=== PATIENT | female | born 1985 | race Caucasian/White ===

== ENCOUNTER 2016-11-01 11:08 | Emergency (ER) | payer BC ==
[2016-11-01 12:27] VITALS: BP 121/75
--- NOTE | 2016-11-01 13:00 | UC ---
Ear Complaint HPI - HPI Summary HPI Summary: has had cold symptoms for 2 weeks, now has left ear pain and swelling behind the ear. - History of Current Complaint Chief Complaint: UCRespiratory Stated Complaint: SORE THROAT,RIGHT EAR PAIN Time Seen by Provider: 11/01/16 12:47 Hx Obtained From: Patient Hx Last Menstrual Period: 10/28/15 ?: No Onset/Duration: Sudden Onset, Lasting Days Severity Initially: Moderate Severity Currently: Moderate Pain Intensity: 5 Pain Scale Used: 0-10 Numeric Associated Signs/Symptoms: Positive: Swelling @ - behing ear, URI Symptoms - Allergies/Home Medications Allergies/Adverse Reactions: Allergies Allergy/AdvReac Type Severity Reaction Status Date / Time Erythromycin Allergy Vomiting Verified 11/01/16 12:20 Home Medications: Home Medications Escitalopram (NF) [Lexapro (NF)] 5 mg PO DAILY 11/01/16 [History Confirmed 11/01] Levothyroxine TAB* [Synthroid TAB*] 50 mcg PO DAILY 11/01/16 [History Confirmed 11/01/16] Omeprazole CAP* [Prilosec CAP* 20 MG] 20 mg PO DAILY 11/01/16 [History Confirmed 11/01/16] PMH/Surg Hx/FS Hx/Imm Hx Previously Healthy: Yes Endocrine History Of: Reports: Thyroid Disease - Surgical History Surgical History: Yes Surgery Procedure, Year, and Place: Sinus surgery-2005 - Family History Known Family History: Positive: Cardiac Disease, Hypertension, Diabetes - Social History Alcohol Use: None Substance Use Type: None Smoking Status (MU): Never Smoked Tobacco - Immunization History Most Recent Influenza Vaccination: FALL 2015 Review of Systems Constitutional: Fatigue Skin: Negative Eyes: Negative ENT: Sore Throat, Ear Ache Respiratory: Negative Cardiovascular: Negative Gastrointestinal: Negative Genitourinary: Negative Motor: Negative Neurovascular: Negative Musculoskeletal: Negative Neurological: Negative Psychological: Negative All Other Systems Reviewed And Are Negative: Yes Physical Exam Triage Information Reviewed: Yes Appearance: Well-Nourished, Ill-Appearing, Pain Distress Vital Signs: Initial Vital Signs Temp 98.1 F 11/01/16 12:21 Pulse 85 11/01/16 12:21 Resp 24 11/01/16 12:21 BP 121/75 11/01/16 12:21 Pulse Ox 100 11/01/16 12:21 Vital Signs Reviewed: Yes Eye Exam: Normal Eyes: Positive: Conjunctiva Clear ENT Exam: Normal ENT: Positive: TM bulging - on left and fluid noted behind it, some redness of TM noted and swelling of lymphnodes behind the ear. Dental Exam: Normal Neck exam: Normal Neck: Positive: Supple, Nontender, No Lymphadenopathy Respiratory Exam: Normal Respiratory: Positive: Chest non-tender, Lungs clear, Normal breath sounds Cardiovascular Exam: Normal Cardiovascular: Positive: RRR, No Murmur, Pulses Normal Abdominal Exam: Normal Abdomen Description: Positive: Nontender, No Organomegaly, Soft Bowel Sounds: Positive: Present Musculoskeletal Exam: Normal Neurological Exam: Normal Psychological Exam: Normal Skin Exam: Normal Ear Complaint Course/Dx - Course Course Of Treatment: hx obtained, exam performed, medication prescribed for otitis media - Differential Dx/Diagnosis Differential Diagnosis/HQI/PQRI: Cerumen Impaction, Otitis Externa, Otitis Media , Perforated TM, URI Provider Diagnoses: pharyngitis. otitis media left Discharge - Discharge Plan Condition: Stable Disposition: HOME Prescriptions: Amoxicillin/Clavulanate TAB* [Augmentin TAB 875*] 875 mg PO BID #20 tab Patient Education Materials: Otitis Media (ED) Additional Instructions: take the medication as prescribed. Use warm compresses to ear, to help with lymph flow. Ibuprofen and tylenol for pain and fever.
== END 2016-11-01 14:27 | disposition home or self-care (01) ==
LOC: UCCORT 11:08
DX: H66.92 Otitis media, unspecified, left ear (principal); J02.9 Acute pharyngitis, unspecified; Z88.1 Allergy status to other antibiotic agents
CPT/HCPCS: 99212; G0463

== ENCOUNTER 2017-05-19 17:13 | Emergency (ER) | payer BC ==
[2017-05-19 17:43] VITALS: BP 132/84
--- NOTE | 2017-05-19 19:25 | UC ---
Throat Pain/Nasal Darnell HPI - HPI Summary HPI Summary: Pt c/o sore throat, PND, tender lymph nodes and nasal congestion, sinus pressure X 3 days. - History of Current Complaint Chief Complaint: UCGeneralIllness Stated Complaint: SORE THROAT Time Seen by Provider: 05/19/17 18:32 Hx Obtained From: Patient Hx Last Menstrual Period: 04/20/17 ?: No Onset/Duration: Gradual Onset, Lasting Days - 3 Severity: Mild Pain Intensity: 7 Pain Scale Used: 0-10 Numeric Associated Signs & Symptoms: Positive: Dysphagia, Sinus Discomfort - Epiglottits Risk Factors Epiglottis Risk Factors: Negative - Allergies/Home Medications Allergies/Adverse Reactions: Allergies Allergy/AdvReac Type Severity Reaction Status Date / Time Erythromycin Allergy Vomiting Verified 05/19/17 17:42 Home Medications: Home Medications PARoxetine HCL TAB* [Paxil TAB*] 30 mg PO DAILY 05/19/17 [History Confirmed ] PMH/Surg Hx/FS Hx/Imm Hx Previously Healthy: Yes - Surgical History Surgical History: Yes Surgery Procedure, Year, and Place: Sinus surgery-2005 - Family History Known Family History: Positive: Cardiac Disease, Hypertension, Diabetes - Social History Occupation: Employed Full-time Lives: With Family Alcohol Use: None Substance Use Type: None Smoking Status (MU): Never Smoked Tobacco Have You Smoked in the Last Year: No - Immunization History Most Recent Influenza Vaccination: FALL 2015 Review of Systems Constitutional: Chills, Fatigue Skin: Negative Eyes: Negative ENT: Sore Throat, Sinus Congestion, Sinus Pain/Tenderness Respiratory: Negative Cardiovascular: Negative Gastrointestinal: Negative Genitourinary: Negative Motor: Negative Neurovascular: Negative Musculoskeletal: Negative Neurological: Negative Psychological: Negative Is Patient Immunocompromised?: No All Other Systems Reviewed And Are Negative: Yes Physical Exam Triage Information Reviewed: Yes Appearance: Well-Appearing Vital Signs: Initial Vital Signs Temp 98.2 F 05/19/17 17:38 Pulse 78 05/19/17 17:38 Resp 14 05/19/17 17:38 BP 132/84 05/19/17 17:38 Pulse Ox 100 05/19/17 17:38 Vital Signs Reviewed: Yes Eye Exam: Normal ENT Exam: Other ENT: Positive: Pharyngeal erythema, Nasal congestion, Tonsillar swelling Dental Exam: Normal Neck exam: Normal Respiratory Exam: Normal Cardiovascular Exam: Normal Musculoskeletal Exam: Normal Neurological Exam: Normal Psychological Exam: Normal Skin Exam: Normal Throat Pain/Nasal Course/Dx - Differential Dx/Diagnosis Differential Diagnosis/HQI/PQRI: Pharyngitis, Tonsillitis Provider Diagnoses: Pharyngitis Discharge - Discharge Plan Condition: Stable Disposition: HOME Prescriptions: Amoxicillin PO (*) [Amoxicillin 875 MG (*)] 875 mg PO Q12H #14 tab Cetirizine-Pseudoephedrine [Zyrtec-D Allergy/Congesti] 1 tab PO DAILY #14 tab Patient Education Materials: Pharyngitis (ED) Referrals: Chaz Blake MD [Primary Care Provider] - If Needed
== END 2017-05-19 19:02 | disposition home or self-care (01) ==
LOC: UCCORT 17:13
DX: J02.9 Acute pharyngitis, unspecified (principal); Z88.1 Allergy status to other antibiotic agents
CPT/HCPCS: 87651; 99212; G0463